=== PATIENT | male | born 1980 ===

== ENCOUNTER 2017-09-23 23:32 | Emergency (ER) | payer OTHER ==
[2017-09-23 23:48] VITALS: RESP 18
[2017-09-24] MEDS ORDERED: Mineral Oil Enema 135 ml PR ONE ×2 (00:36→00:37)
--- NOTE | 2017-09-24 01:17 | ED PDOC ---
HPI: Abdomen Time Seen by Provider: 09/24/17 00:03 Chief Complaint (Nursing): GI Problem History Per: Patient History/Exam Limitations: no limitations Onset/Duration Of Symptoms: Days Outside of [place] travel?: No Current Symptoms Are (Timing): Still Present Location Of Pain/Discomfort: Diffuse Additional Complaint(s): No PMHx presenting with decreased BM's, states he's been traveling a lot recently and eating street food, yesterday ate hard rice and felt abdominal pain and discomfort, had decreased BM's, went to Urgent Care in [facility] and was told he had constipation upon taking x-ray, patient states he took colace, fleet enema, lactulose without significant relief. Patient states he feels bloated. No fevers, no nausea, no vomiting. No surgeries. Past Medical History Reviewed: Historical Data, Nursing Documentation, Vital Signs Vital Signs: Last Vital Signs Temp 97.9 F 09/23/17 23:45 Pulse Resp 18 09/23/17 23:45 BP 155/96 H 09/23/17 23:45 Pulse Ox 100 09/24/17 01:18 - Medical History PMH: No Chronic Diseases - Surgical History Surgical History: No Surg Hx - Family History Family History: States: Unknown Family Hx - Allergies Allergies/Adverse Reactions: Allergies Allergy/AdvReac Type Severity Reaction Status Date / Time No Known Allergies Allergy Verified 09/23/17 23:45 Review of Systems ROS Statement: Except As Marked, All Systems Reviewed And Found Negative Gastrointestinal: Positive for: Abdominal Pain, Constipation Physical Exam - Reviewed Nursing Documentation Reviewed: Yes Vital Signs Reviewed: Yes - Physical Exam Appears: Positive for: Well (Obese), Non-toxic, No Acute Distress Head Exam: Positive for: ATRAUMATIC, NORMAL INSPECTION, NORMOCEPHALIC Skin: Positive for: Normal Color, Warm, DRY Eye Exam: Positive for: EOMI, Normal appearance, PERRL ENT: Positive for: Normal ENT Inspection Neck: Positive for: Normal, Painless ROM Cardiovascular/Chest: Positive for: Regular Rate, Rhythm Respiratory: Positive for: CNT, Normal Breath Sounds Gastrointestinal/Abdominal: Positive for: Normal Exam, Soft Back: Positive for: Normal Inspection Extremity: Positive for: Normal ROM Neurologic/Psych: Positive for: Alert, Oriented - Laboratory Results Result Diagrams: 09/24/17 03:00 09/24/17 03:00 - ECG O2 Sat by Pulse Oximetry: 100 Pulse Ox Interpretation: Normal Medical Decision Making Medical Decision Making: A/P: No PMHX presenting with constipation -patient is very well appearing, normal exam, normal vitals -not concnered for acute sbo, appendicitis, cholecystitis or other acute surgical/life threatning pathology -will provide mineral oil enemas and re-eval 645 Patient had BM, feeling better [address] scan, will endorse to Dr. Berg Disposition - Clinical Impression Clinical Impression: Constipation - Patient ED Disposition Is Patient to be Admitted: Transfer of Care - Disposition Disposition: Transfer of Care Disposition Time: 07:00 Condition: STABLE Forms: Chu Shu (Kazakh) Patient Signed Over To: Lupe Berg Handoff Comments: pending CT scan results
[2017-09-24] MEDS ORDERED: Peg-Electrolyte Oral Soln 4L (Golytely) PO ONE (01:20)
[2017-09-24] MEDS ORDERED: Sodium Chloride 0.9% 1,000 ML IV STA (02:53)
[2017-09-24 03:40] LABS: BASO # 0.1 K/uL (0.0-0.2); BASO % 0.6 % (0.0-2.0); EOS % 0.3 % (0.0-4.0); HEMOGLOBIN 15.8 g/dL (12.0-18.0); LYMPH # 2.1 K/uL (1.0-4.3); LYMPH % 14.6 % (20.0-40.0); MEAN CELL VOLUME 78.8 fl (80.0-94.0); MEAN CORPUSCULAR HEMOGLOBIN 27.3 pg (27.0-31.0); MEAN CORPUSCULAR HGB CONC 34.6 g/dL (33.0-37.0); MEAN PLATELET VOLUME 9.8 fl (7.2-11.7); MONO # 1.4 K/uL (0.0-0.8); MONO % 9.4 % (0.0-10.0); NEUT % 75.1 % (50.0-75.0); RBC 5.8 Mil/uL (4.40-5.90); RED CELL DISTRIBUTION WIDTH 13.3 % (11.5-14.5); WHITE BLOOD COUNT 14.6 K/uL (4.8-10.8)
[2017-09-24 03:43] LABS: ALB/GLOB RATIO 1.2 (1.0-2.1); ALBUMIN 4.6 g/dL (3.5-5.0); ALT/SGPT 42 U/L (21-72); AST/SGOT 24 U/L (17-59); BLOOD UREA NITROGEN 11 mg/dl (9-20); CALCIUM 10.4 mg/dL (8.4-10.2); GFR AFRICAN-AMERICAN > 60; GFR NON-AFRICAN AMERICAN > 60; LIPASE 72 U/L (23-300)
[2017-09-24] MEDS ORDERED: Sodium Chloride 0.9% 50 ML IV ONE (05:04)
[2017-09-24] MEDS ORDERED: Iohexol 300 100 ML IJ ONE (05:04)
--- NOTE | 2017-09-24 07:51 | ED PDOC ---
- Laboratory Results Result Diagrams: 09/24/17 03:00 09/24/17 03:00 - ECG O2 Sat by Pulse Oximetry: 100 Medical Decision Making Medical Decision Making: Time: 07:00 Patient is endorsed to Dr. Berg from Dr. Castellano pending CT scan evaluation. Scribe Attestation: Documented by Bubba Palencia, acting as a scribe for Dr. Lupe Berg. Provider Scribe Attestation: All medical record entries made by the Scribe were at my direction and personally dictated by me. I have reviewed the chart and agree that the record accurately reflects my personal performance of the history, physical exam, medical decision making, and the department course for this patient. I have also personally directed, reviewed, and agree with the discharge instructions and disposition. 8.00am - patient seen by surgical lead. Case reviewed with Dr. Stahl. He advised patient and family that they may be discharge without medications and that the patient should be brought back to the ER if he has recurrence of pain, fever or inability to defecate. Patient is from the [facility]. States he will be returning there in the next 1-2 days. Disposition Doctor Will See Patient In The: Office - Clinical Impression Clinical Impression: Constipation - POA Present On Arrival: None - Disposition Referrals: Catia Smith [Outside] Disposition: Routine/Home Disposition Time: 08:00 Condition: IMPROVED Instructions: Constipation in Adults Forms: Oversi ([place])
[2017-09-24 09:00] VITALS: BP 136/91; PULSE 86; TEMP 97.6; O2SAT 98
--- NOTE | 2017-09-24 09:10 | CP.PCM.CON ---
History of Present Illness - History of Present Illness History of Present Illness: Surgery Consult note. Dr. Stahl 37yo M with PMHx of pre-diabetes here for evaluation of abdominal pain and distention. Patient states that he has been constipated for the past 2 days. He reports that he has been feeling very uncomfortable and bloated. He has been traveling for the past 2 days, multiple cities within the . He reports that his diet has been very unhealthy, eating mostly street food which has been greasy. Last meal was yesterday afternoon, chicken and rice off a street cart in [facility]. He went to an Urgent care where he received some colace and lactulose without improvement and an XRay which showed some constipation. He denies any N/ V. States that his abdomen was distended prior to arrival to the ED last night. In the ED, he was given some golytely. CT Abd/Pelvis obtained with some liquid stool throughout the colon. After the CT, patient reports two large episodes of loose brown bowel movements, no blood. States that he feels much improved however, still has some mild abdominal discomfort described as soreness. He states that he would like to be discharged home. PMHx: Pre-Diabetes PSHx: Denies Family Hx: non-contributory Social Hx: Denies tobacco use; Denies ETOH use; Denies illicit drugs NKDA Review of Systems - Review of Systems All systems: reviewed and no additional remarkable complaints except - Constitutional Constitutional: absent: Chills, Fever - Cardiovascular Cardiovascular: absent: Chest Pain, Dyspnea - Respiratory Respiratory: absent: Dyspnea - Gastrointestinal Gastrointestinal: Abdominal Pain, Constipation, Loose Stools. absent: Nausea, Vomiting - Genitourinary Genitourinary: absent: Difficulty Urinating, Dysuria Past Patient History - Past Medical History & Family History Past Medical History?: Yes Past Family History: Reviewed and not pertinent - Past Social History Smoking Status: Never Smoked Alcohol: None Drugs: Denies Home Situation {Lives}: With Family, Other (Lives in [place]) - ENDOCRINE/METABOLIC Hx Diabetes Mellitus Type 2: Yes - PSYCHIATRIC Hx Substance Use: No Meds Allergies/Adverse Reactions: Allergies Allergy/AdvReac Type Severity Reaction Status Date / Time No Known Allergies Allergy Verified 09/23/17 23:45 Physical Exam - Constitutional Appears: Well, Non-toxic, No Acute Distress - Head Exam Head Exam: ATRAUMATIC, NORMAL INSPECTION, NORMOCEPHALIC - Eye Exam Eye Exam: EOMI, Normal appearance. absent: Scleral icterus - ENT Exam ENT Exam: Mucous Membranes Moist - Respiratory Exam Respiratory Exam: NORMAL BREATHING PATTERN. absent: Accessory Muscle Use, Respiratory Distress - Cardiovascular Exam Cardiovascular Exam: RRR. absent: JVD - GI/Abdominal Exam GI & Abdominal Exam: Soft. absent: Distended, Firm, Guarding, Rebound, Rigid - Rectal Exam Rectal Exam: NORMAL INSPECTION. absent: Black Stool, Bloody Stool, Hemorrhoids , Fecal Impaction Additional comments: No mass, no tenderness to palpation. Some loose brown liquid stool in rectal vault. - Extremities Exam Extremities exam: Positive for: normal inspection. Negative for: calf tenderness - Back Exam Back exam: NORMAL INSPECTION - Neurological Exam Neurological exam: Alert, Oriented x3 - Psychiatric Exam Psychiatric exam: Normal Affect, Normal Mood - Skin Skin Exam: Dry, Intact, Normal Color, Warm Results - Vital Signs Recent Vital Signs: Last Vital Signs Temp 97.6 F 09/24/17 08:30 Pulse 86 09/24/17 08:30 Resp 18 09/24/17 08:30 BP 136/91 H 09/24/17 08:30 Pulse Ox 98 09/24/17 08:30 - Labs Result Diagrams: 09/24/17 03:00 09/24/17 03:00 Labs: Laboratory Results - last 24 hr 09/24/17 09/24/17 03:00 03:00 WBC 14.6 H RBC 5.80 Hgb 15.8 Hct 45.8 MCV 78.8 L MCH 27.3 MCHC 34.6 RDW 13.3 Plt Count 249 MPV 9.8 Neut % (Auto) 75.1 H Lymph % (Auto) 14.6 L [place] % (Auto) 9.4 Eos % (Auto) 0.3 Baso % (Auto) 0.6 Neut # (Auto) 11.0 H Lymph # (Auto) 2.1 [place] # (Auto) 1.4 H Eos # (Auto) 0.0 Baso # (Auto) 0.1 Sodium 140 Potassium 4.1 Chloride 101 Carbon Dioxide 26 Anion Gap 17 BUN 11 Creatinine 0.9 Est GFR ( Amer) > 60 Est GFR (Non-Af Amer) > 60 Random Glucose 137 H Calcium 10.4 H Total Bilirubin 1.2 AST 24 ALT 42 Alkaline Phosphatase 139 H Total Protein 8.6 H Albumin 4.6 Globulin 3.9 Albumin/Globulin Ratio 1.2 Lipase 72 Assessment & Plan - Assessment and Plan (Free Text) Assessment: 37yo M with constipation, resolved - CT noted: liquid stool in colon. - Has had 2 large liquid bowel movements after the CT scan was completed Plan: - No acute general surgery intervention indicated at this time - Patient told to return to the ED with any worsening symptoms. Patient agrees with plan. - Continue with bland diet. Further recs as per Dr. Favio Viera PGY1 surgery pager: [phone]
--- NOTE | 2017-09-24 16:34 | CT ---
PROCEDURE: CT Abdomen and Pelvis with contrast HISTORY: severe constipation COMPARISON: None. TECHNIQUE: Contrast dose: Omnipaque 300, 100 cc Radiation dose: Total exam DLP = 1174.44 mGy-cm. This CT exam was performed using one or more of the following dose reduction techniques: Automated exposure control, adjustment of the mA and/or kV according to patient size, and/or use of iterative reconstruction technique. FINDINGS: LOWER THORAX: Unremarkable. LIVER: Diffuse diminished attenuation of the liver is compatible with hepatic steatosis. No focal mass or intrahepatic biliary dilatation is appreciated. GALLBLADDER AND BILE DUCTS: Unremarkable. PANCREAS: Unremarkable. No gross lesion or ductal dilatation. SPLEEN: Unremarkable. ADRENALS: Unremarkable. No mass. KIDNEYS AND URETERS: Unremarkable. No hydronephrosis. No solid mass. VASCULATURE: Unremarkable. No aortic aneurysm. BOWEL: Fluid filled large bowel loops are identified diffusely, compatible with diarrhea. Given history constipation, consider rectal or anal obstruction in effect. APPENDIX: Normal appendix. PERITONEUM: Unremarkable. No free fluid. No free air. LYMPH NODES: Unremarkable. No enlarged lymph nodes. BLADDER: Unremarkable. REPRODUCTIVE: Unremarkable. BONES: No acute fracture. OTHER FINDINGS: None. IMPRESSION: Fluid for large-bowel loops are suggestive of diarrhea and in a patient with a clinical history of from constipation, consider potential anal or distal rectal obstruction. Clinically correlate further. Hepatic steatosis. Concordant preliminary report from [facility], 09/24/2017.
== END 2017-09-24 08:30 | disposition home or self-care (01) ==
LOC: H.ER 23:32
DX: K59.00 Constipation, unspecified (principal); K76.0 Fatty (change of) liver, not elsewhere classified; E11.9 Type 2 diabetes mellitus without complications
CPT/HCPCS: 74177; 80053; 83690; 85025; 96361; 96374; 99285; J1885; J7030; Q9967